=== PATIENT | female | born 1995 | race Caucasian/White ===

== ENCOUNTER 2022-01-08 11:02 | Emergency (ER) | payer OTHER, MEDICAID ==
[~2022-01-08] VITALS: Ht 154.9 cm; Wt 65.8 kg
[2022-01-08 11:03] VITALS: BP 104/71
--- NOTE | 2022-01-08 11:25 | NUR ---
27YO F PRESENTING TO ED FOR TB CLEARANCE FOR [facility]. PT DENIES FEVER, CHILLS, BODY ACHES. DENIES SYMPTOMS BUT TESTED POSITIVE ON PPD WHICH WAS DONE 3 DAYS AGO. PT REPORTS THAT MOTHER HAS LATENT TB. WAITING FOR RADIOLOGY.
--- NOTE | 2022-01-08 11:33 | NUR ---
RADIOLOGY AT BEDSIDE.
--- NOTE | 2022-01-08 12:13 | NUR ---
Patient discharged with v/s stable. Written and verbal after care instructions given and explained. Patient verbalized understanding. Ambulatory with steady gait. All questions addressed prior to discharge. Advised to follow up with PMD.
[2022-01-08 12:21] VITALS: BP 104/71
== END 2022-01-08 12:13 | disposition home or self-care (01) ==
LOC: MED 11:02
DX: Z11.1 Encounter for screening for respiratory tuberculosis (principal)
CPT/HCPCS: 71045; 99283